=== PATIENT | female | born 1995 | race Caucasian/White ===

== ENCOUNTER 2025-01-24 10:39 | Emergency (ER) | payer OTHER, SELFPAY ==
[2025-01-24 10:42] VITALS: BP 110/75
[2025-01-24 12:52] LABS: Urine Albumin Negative (Neg - Trace); Urine Bilirubin Negative (Negative); Urine Character Clear (Clear); Urine Color Yellow; Urine Glucose Negative (Negative); Urine Ketone Negative (Negative); Urine Leukocyte Negative (Negative); Urine Nitrite Negative (Negative); Urine Occult Blood 4+ (Negative); Urine Urobilinogen Negative (Neg - 1+)
[2025-01-24 12:57] LABS: HCG, Urine Qualitative Screen Negative
[2025-01-24 13:17] LABS: Urine Squamous Cell >30 /LPF (Few)
[2025-01-24 13:18] LABS: Urine Amorphous Seen
[2025-01-24 13:19] LABS: Urine White Cell 0-2 /HPF (0-5)
[2025-01-24 14:11] VITALS: BP 105/74
--- NOTE | 2025-01-24 14:14 | ED.GENMED ---
History of Present Illness
<Case Wu PA-C - Last Filed: 01/25/25 08:35>
General
Chief Complaint: Urinary Symptoms
Time Seen by Provider: 01/24/25 11:43
History of Present Illness
History of Present Illness:
29-year-old female presents to the emergency department for evaluation of suprapubic pain and hematuria. She notes that approximately 1 month ago she was treated for Ureaplasma with doxycycline and metronidazole. Last menstrual period was 2 weeks
ago. She denies any bleeding from the vagina to her knowledge. No fevers or chills. Denies dysuria or urinary urgency
Past History
<CORTNEY Dong Last Filed: 01/25/25 08:35>
Past History
ED Past Medical History: None
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
Social History
Tobacco: Non-smoker
Living: with family
Review of Systems
<CORTNEY Dong Last Filed: 01/25/25 08:35>
Review of Systems
Allergies reviewed?: Yes
All Other Systems: ROS reviewed and negative except as documented in HPI and ROS
Phy Exam
<CORTNEY Dong Last Filed: 01/25/25 08:35>
Physical Exam
Physical Exam:
GEN: Well appearing, NAD, WDWN
HEENT: Oral mucosa moist, no scleral icterus
Cardiac: Regular rate
Lung: No respiratory distress, no tachypnea
Abdomen: Soft, nontender
MSK: No gross deformity or injuries
Skin: Good color, no pallor or jaundice, no rashes
Neuro: AO x3, moves all extremities freely
Psych: Calm, cooperative
Course
<CORTNEY Dong Last Filed: 01/25/25 08:35>
Orders/Labs/Results
Orders:
Orders
01/24/25 12:19
Test Result ONCE
01/24/25 12:42
Beta Hcg Urine Qualitative Screen [HCG, Urine Qualitative Screen] Urgent
Date Specimen was Collected: 01/24/25
Time Specimen was Collected: 12:24
Urinalysis Reflex To Culture Urgent
Date Specimen was Collected: 01/24/25
Time Specimen was Collected: 12:24
Urine Microscopic Reflex Cult Urgent
01/24/25 13:54
US Kidneys and US Bladder [US Renal With Bladder] Urgent
Comment:
Reason For Exam: hematuria
US Pelvis Only (non-obstetric) Urgent
Comment:
Reason For Exam: hematuria/vag bleeding, pelvic pain
01/24/25 17:53
Basic Metabolic Panel Urgent
Complete Blood Count/With Diff Urgent
Abnormal Lab Results
01/24/25 01/24/25
12:42 17:53
MCH 31.9 H pg
(27.0-31.0)
Absolute Monos (auto) 0.7 H 10^3/uL
(0.1-0.6)
Chloride 108 H mmol/L
(98-107)
Ur Occult Blood Reflex 4+ A
(Negative)
Urine RBC 7-10 A /HPF
(0-2)
01/24/25 17:53
01/24/25 17:53
Vital Signs
Initial and Last Documented VS:
Initial Vital Signs
Temp Pulse Resp BP Pulse Ox
98.2 F 66 16 110/75 100
01/24/25 10:42 01/24/25 10:42 01/24/25 10:42 01/24/25 10:42 01/24/25 10:42
Last Documented Vital Signs
Temp Pulse Resp BP Pulse Ox
98.2 F 68 16 110/74 100
01/24/25 10:42 01/24/25 18:30 01/24/25 18:30 01/24/25 18:30 01/24/25 18:30
<Heather Rosado PA-C - Last Filed: 01/25/25 01:51>
Orders/Labs/Results
Orders:
Orders
01/24/25 12:19
Test Result ONCE
01/24/25 12:42
Beta Hcg Urine Qualitative Screen [HCG, Urine Qualitative Screen] Urgent
Date Specimen was Collected: 01/24/25
Time Specimen was Collected: 12:24
Urinalysis Reflex To Culture Urgent
Date Specimen was Collected: 01/24/25
Time Specimen was Collected: 12:24
Urine Microscopic Reflex Cult Urgent
01/24/25 13:54
US Kidneys and US Bladder [US Renal With Bladder] Urgent
Comment:
Reason For Exam: hematuria
US Pelvis Only (non-obstetric) Urgent
Comment:
Reason For Exam: hematuria/vag bleeding, pelvic pain
01/24/25 17:53
Basic Metabolic Panel Urgent
Complete Blood Count/With Diff Urgent
Abnormal Lab Results
01/24/25 01/24/25
12:42 17:53
MCH 31.9 H pg
(27.0-31.0)
Absolute Monos (auto) 0.7 H 10^3/uL
(0.1-0.6)
Chloride 108 H mmol/L
(98-107)
Ur Occult Blood Reflex 4+ A
(Negative)
Urine RBC 7-10 A /HPF
(0-2)
01/24/25 17:53
01/24/25 17:53
Vital Signs
Initial and Last Documented VS:
Initial Vital Signs
Temp Pulse Resp BP Pulse Ox
98.2 F 66 16 110/75 100
01/24/25 10:42 01/24/25 10:42 01/24/25 10:42 01/24/25 10:42 01/24/25 10:42
Last Documented Vital Signs
Temp Pulse Resp BP Pulse Ox
98.2 F 68 16 110/74 100
01/24/25 10:42 01/24/25 18:30 01/24/25 18:30 01/24/25 18:30 01/24/25 18:30
<Case Wu PA-C - Last Filed: 01/25/25 08:35>
MDM/Problems Addressed
MDM/Problems Addressed:
29-year-old female presenting with hematuria and pelvic pain, initial urinalysis is bland, she is concerned about the possibility for an ovarian cyst although this would not be likely in the setting of hematuria. Will send for ultrasounds, signed
out to Heather Rosado PA-C pending imaging
<Heather Rosado PA-C - Last Filed: 01/25/25 01:51>
*Critical Care Note
Total Time (30-74mins, 75-104mins- exclusive of procedures): Not Applicable
<Heather Rosado PA-C - Last Filed: 01/25/25 01:51>
Update Note
Update Note:
Update 18:24: Received patient in signout pending US reports. No acute abnormalities seen on pelvic or renal US. Labs reviewed w/ stable hemoglobin and no evidence of renal insufficiency. Discussed all findings with patient at length. She remains
well and comfortable appearing in no apparent distress. Ultimately - feel stable for discharge home w/ urology f/u outpatient. Close return precautions discussed.
ED Attending Note
<Case Wu PA-C - Last Filed: 01/25/25 08:35>
-
Portions of this chart may have been created with voice recognition software.� Occasional wrong word or��sound alike� substitutions may have occurred due to the inherent limitations of voice recognition software.
Discharge Plan
Departure
Patient Disposition: Home (Routine Discharge)
Date of Disposition: 01/24/25
Time of Disposition: 18:23
Patient with high blood pressure during this ER visit?: No
Condition: Good
Covid-19: Not Applicable
Discharge Problem:
Hematuria
Instructions: Blood in the Urine (Hematuria), Adult (DC)
Prescriptions:
No Action
No Current Medications
0
Referrals:
Alena Frank MD [Family Provider] -
Greg Alatorre MD [Active] - Call in 1-3 days for appt
Activity Restrictions/Additional Instructions:
RETURN TO THE EMERGENCY DEPARTMENT ANY FEVER, CHILLS, PERSISTENT/WORSENING ABDOMINAL PAIN, HEAVY/PERSISTENT BLOOD IN YOUR URINE, DIZZINESS/LIGHTHEADEDNESS, SHORTNESS OF BREATH, OR ANY OTHER CONCERNS
- As discussed your lab work showed no acute abnormalities. Your hemoglobin is normal. Your kidney function was normal.
- Your ultrasound showed no acute abnormalities.
- Hematuria of unknown cause�it is importantly follow-up with urology for further evaluation/management. You may require further imaging/testing
Monitor your symptoms closely and return to the emergency department with any acute worsening/new symptoms or any other concerns
Interventions
Interventions:
*Risk Screen - Suicide Last Done: 01/24/25 10:45
*Neglect/Abuse Screening Last Done: 01/24/25 10:45
*Nursing Disposition Last Done: 01/24/25 18:30
ED-Female Genitourinary Assessment Last Done: 01/24/25 12:25
Discharge Date and Time
Discharge Date/Time: 01/24/25 18:30
Print Language: INDONESIAN
[2025-01-24 17:07] VITALS: BP 112/72
[2025-01-24 18:05] LABS: % Basophils 0.7 % (0-2); % Eosinophils 1.5 % (0-6); % Immature Granulocytes 0.3 % (0-0.5); % Neutrophils 53.5 % (42.2-75.2); Absolute Basophils 0.1 10^3/uL (0-0.2); Absolute Eosinophils 0.1 10^3/uL (0-0.7); Absolute Lymphocytes 2.5 10^3/uL (1.2-3.4); Absolute Monocytes 0.7 10^3/uL (0.1-0.6); Absolute Neutrophils 3.9 10^3/uL (1.4-6.5); Hematocrit 39.5 % (37.0-47.0); Hemoglobin 13.8 g/dL (12.0-16.0); Mean Corp Hgb Conc. 34.9 g/dL (33.0-37.0); Mean Corpuscular Hgb 31.9 pg (27.0-31.0); Mean Corpuscular Volume 91.2 fL (81.0-99.0); Mean Platelet Volume 10.3 fL (7.4-10.4); Nucleated Red Blood Cells % 0 %; Platelet Count 243 10^3/uL (130-400); Red Blood Cell Count 4.33 10^6/uL (4.20-5.40); Red Cell Dist. Width 11.7 % (11.5-14.5); White Blood Cell Count 7.2 10^3/uL (4.8-10.8)
[2025-01-24 18:19] LABS: Blood Urea Nitrogen 12 mg/dl (7-17); Carbon Dioxide 27 mmol/L (22-30); Chloride 108 mmol/L (98-107); Glucose 89 mg/dl (70-99); Potassium 3.7 mmol/L (3.5-5.1); Sodium 140 mmol/L (135-145); eGFR > 60.00
[2025-01-24 18:30] VITALS: BP 110/74
== END 2025-01-24 18:30 | disposition home or self-care (01) ==
LOC: EMR 10:39
PROVIDERS: Physician Assistant; EMERGENCY PHYSICIAN Emergency Medicine; FAMILY PHYSICIAN Hospitalist
DX: R31.9 Hematuria, unspecified (principal); R10.2 Pelvic and perineal pain
CPT/HCPCS: 99284; 76770; 76856; 80048; 81003; 81015; 81025; 85025